=== PATIENT | female | born 1950 | race Caucasian/White ===

== ENCOUNTER → 2016-08-27 | Outpatient (CLI) | payer OTHER ==
--- NOTE | 2016-08-27 15:36 | REP ---
Left tibia-fibula three views : There is no fracture or dislocation. Mineralization and joint spaces are normal. There are no calcifications or foreign bodies. Impression: Negative left tibia-fibula. There is osteoarthritis of the knee. Signed by Pb Long MD 08/27/2016 03:29 P
--- NOTE | 2016-08-27 15:39 | REP ---
Left ankle four views: There is a small calcification adjacent to the superior margin of the talar head on two views, possibly an avulsion. Correlation with clinical point tenderness is recommended. Mineralization and joint spaces are otherwise unremarkable. There is no other evidence of fracture. No dislocation. Impression: Questionable avulsion along the superior margin of the talar head. Correlate with clinical point tenderness. Signed by Pb Long MD 08/27/2016 03:31 P
--- NOTE | 2016-08-27 15:42 | REP ---
Left foot four views: There is a small linear calcification adjacent to the head of the talus superiorly, possibly an avulsion. Correlation with clinical point tenderness is recommended. Mineralization is normal. Joint spaces are otherwise unremarkable. No other fracture or dislocation. Impression: Question avulsion along the superior margin of the head of the talus. Correlate with point tenderness. Signed by Pb Long MD 08/27/2016 03:34 P
== END ==
LOC: M WUC 14:33
PROVIDERS: ATTEND Physician Assistant
DX: M61.472 Other calcification of muscle, left ankle and foot (principal); M17.12 Unilateral primary osteoarthritis, left knee; S80.12XA Contusion of left lower leg, initial encounter; S90.32XA Contusion of left foot, initial encounter; S90.02XA Contusion of left ankle, initial encounter; X58.XXXA Exposure to other specified factors, initial encounter; Y92.89 Other specified places as the place of occurrence of the external cause; Y93.89 Activity, other specified; Y99.8 Other external cause status

== ENCOUNTER → 2019-03-07 | Outpatient (REF) | payer MEDICARE, OTHER | LOC: M LAB REF 16:19 | PROVIDERS: ATTEND Nurse Practitioner Family | DX: J02.9 Acute pharyngitis, unspecified (principal) ==

== ENCOUNTER → 2020-02-15 | Outpatient (CLI) | payer MEDICARE, OTHER ==
[~2020-02-15] MED LIST: ASPI81TA86 PO; EXCETAB22 PO
== END ==
LOC: M LABSMTC 09:53
PROVIDERS: ATTEND Anesthesiology
DX: Z01.812 Encounter for preprocedural laboratory examination (principal); Z20.828 Contact with and (suspected) exposure to other viral communicable diseases
CPT/HCPCS: C9803; U0003

== ENCOUNTER 2020-02-20 10:58 | Day surgery (SDC) | payer MEDICARE, OTHER ==
[~2020-02-20] VITALS: Ht 165.1 cm; Wt 74.4 kg
[~2020-02-20 10:58] MED LIST changes: +NS 1,000 ML IV ONE
[2020-02-20] MEDS ORDERED: propofoL 200 MG/20 ML VIAL As Ordered ONE (11:56)
--- NOTE | 2020-02-20 12:14 | ROOR ---
Patient Name: Paddy Greenfield Procedure Date: 02/20/2020 11:51 AM Date of : 1950 Age: 69 Room: [facility] Gender: Female Note Status: Finalized Procedure: Colonoscopy Indications: Screening for colorectal malignant neoplasm Providers: Segundo Méndez Jr, MD Referring MD: Sophie Nicole NP Requesting Provider: Medicines: Propofol per Anesthesia Complications: No immediate complications. Procedure: Pre-Anesthesia Assessment: - Prior to the procedure, a History and Physical was performed, and patient medications and allergies were reviewed. The patient is competent. The risks and benefits of the procedure and the sedation options and risks were discussed with the patient. All questions were answered and informed consent was obtained. Patient identification and proposed procedure were verified by the physician and the nurse in the pre-procedure area and in the procedure room. Mental Status Examination: alert and oriented. Airway Examination: normal oropharyngeal airway and neck mobility. Respiratory Examination: clear to auscultation. CV Examination: normal. ASA Grade Assessment: II - A patient with mild systemic disease. After reviewing the risks and benefits, the patient was deemed in satisfactory condition to undergo the procedure. The anesthesia plan was to use moderate sedation / analgesia (conscious sedation). Immediately prior to administration of medications, the patient was re-assessed for adequacy to receive sedatives. The heart rate, respiratory rate, oxygen saturations, blood pressure, adequacy of pulmonary ventilation, and response to care were monitored throughout the procedure. The physical status of the patient was re-assessed after the procedure. The Colonoscope was introduced through the anus and advanced to the cecum, identified by appendiceal orifice and ileocecal valve. The colonoscopy was performed without difficulty. The patient tolerated the procedure well. The quality of the bowel preparation was adequate. Findings: The rectum, recto-sigmoid colon, descending colon, transverse colon, ascending colon, cecum, appendiceal orifice and ileocecal valve appeared normal. Multiple small-mouthed diverticula were found in the sigmoid colon. Impression: - The rectum, recto-sigmoid colon, descending colon, transverse colon, ascending colon, cecum, appendiceal orifice and ileocecal valve are normal. - Diverticulosis in the sigmoid colon. - No specimens collected. Recommendation: - Discharge patient to home (ambulatory). - Repeat colonoscopy in 10 years for screening purposes. Segundo Méndez MD Segundo Méndez Jr, MD 02/20/2020 12:14:06 PM Electronically signed by Segundo Méndez Jr, MD Number of Addenda: 0 Note Initiated On: 02/20/2020 11:51 AM Estimated Blood Loss: Estimated blood loss: none.
[2020-02-20 12:29] VITALS: BP 141/74
== END 2020-02-20 12:35 | disposition home or self-care (01) ==
LOC: M OPP 10:58
PROVIDERS: ATTEND Surgery
DX: Z12.11 Encounter for screening for malignant neoplasm of colon (principal); K57.30 Diverticulosis of large intestine without perforation or abscess without bleeding; K21.9 Gastro-esophageal reflux disease without esophagitis; Z79.82 Long term (current) use of aspirin

== ENCOUNTER → 2020-08-19 | Outpatient (CLI) | payer MEDICARE, OTHER ==
[~2020-08-19] MED LIST changes: -NS 1,000 ML IV ONE
--- NOTE | 2020-08-19 14:04 | REP ---
INDICATION: DDD LUMBAR ? HNP STENOSIS. COMPARISON: None. TECHNIQUE: Sagittal T1, T2, STIR, axial T1 and T2 weighted images obtained. FINDINGS: There is owtf-ba-lbzkbkyd multilevel degenerative disc disease with loss of disc height and disc desiccation seen diffusely throughout the lumbar spine. Vertebral heights overall preserved. There is a slight anterolisthesis of L4 over L5. On the sagittal T2 weighted images, no limiting canal stenosis. Conus ends normally at L1 level. On the review of axial images, At L1-2 global disc bulge with mild canal narrowing, moderate left and mild right foraminal narrowing. At L2-3 global disc bulge with mild canal narrowing and mild bilateral foraminal narrowing. At L3-4 global disc bulge with mild canal narrowing and bdwj-vs-oyuhmfnm bilateral foraminal narrowing. At L4-5 broad-based disc bulge and slight listhesis with facet hypertrophic degenerative changes with iiiu-na-mhcvdheo bilateral foraminal narrowing, greater on the left and mild canal stenosis. At L5-S1 global disc bulge with loss of disc height with mild canal narrowing and moderate right and cbcy-ft-gjellutp left foraminal narrowing. IMPRESSION: 1. Cvta-on-xjctdzsy multilevel degenerative disc disease. 2. No limiting canal stenosis. No focal disc herniation. 3. Multilevel degenerative foraminal narrowing, moderate on the left at L1-2, and moderate on the right at L5-S1 levels. 4. Facet arthropathy is notable at the L4-5 level. <Electronically signed by Ag Paul > 08/19/20 [id number]
== END ==
LOC: M RAD 12:42
PROVIDERS: ATTEND Orthopaedic Surgery
DX: M51.36 Other intervertebral disc degeneration, lumbar region (principal)

== ENCOUNTER → 2020-09-22 | Outpatient (CLI) | payer MEDICARE, OTHER ==
--- NOTE | 2020-09-22 11:23 | REP ---
INDICATION: CONTUSION. COMPARISON: None. TECHNIQUE: Four-views FINDINGS: There is asymmetric intra digital joint space narrowing involving all digits. This is moderate. Marginal osteophytosis is seen involving the interphalangeal joint of the 1st digit and the DIP joint of the 2nd digit mostly with more mild marginal osteophytosis seen at all other interphalangeal joints. There is no evidence of periarticular osteopenia. There are no marginal erosions. There is no acute fracture. Moderate to severe degenerative changes are seen involving the wrist particularly the 1st carpometacarpal joint space and the scaphotrapezium interval. IMPRESSION: Chronic changes as described above. <Electronically signed by Jam Oro > 09/22/20 [id number]
== END ==
LOC: M WUC 11:03
PROVIDERS: ATTEND Physician Assistant
DX: S60.221A Contusion of right hand, initial encounter (principal)

== ENCOUNTER → 2021-02-22 | Outpatient (CLI) | payer MEDICARE, OTHER ==
--- NOTE | 2021-02-22 09:50 | REPMRS ---
Patient History The patient states she has not had a clinical breast exam in over a year. Family history of breast cancer at age 58 in mother, breast cancer at age 50 or over in paternal grandmother, unknown cancer at age 56 in father, unknown cancer at age 50 or over in sister, breast cancer at age 50 or over in paternal aunt. Took hormonal contraceptives for 2 years. 14 lb intentional weight loss. Covid vaccines 06/06/20 right arm, 06/27/20 right arm, 01/2021 right arm. Patient states no breast complaints today. Patient has signed MRS History Sheet. Digital Woman Screen Mammo: February 22, 2021 - Exam #: [id number] Bilateral CC and MLO view(s) were taken. Technologist: RT Sarita Prior study comparison: January 27, 2014, bilateral bilat screen digital mammo, performed at [facility] ([facility]). January 25, 2013, bilateral bilat screen digital mammo, performed at [facility] ([facility]). FINDINGS: There are scattered fibroglandular densities. Screening. Digital screening (2D) mammography was performed bilaterally in the CC and MLO projections. Additionally, breast tomosynthesis (3D mammography) was performed bilaterally in the CC and MLO projections. Todays exam was compared to the prior exam/exams. By history, the patient has no complaints of a palpable breast abnormality or other significant breast complaints. The breasts are unchanged in size and shape. There are no nataly-soft tissue densities or spiculated masses. There is no internal architectural distortion. Once again, stable benign appearing calcifications are seen.There are no suspicious nataly-calcific clusters. Skin thickening or nipple retraction is not present. IMPRESSION: BI-RADS Category 2- Benign Findings. There is no evidence of malignant alteration of the breasts. Followup examination recommended in one year. The Volpara volumetric breast density category is B, there are scattered areas of fibroglandular densities. This mammogram was read with the assistance of [employer],an FDA approved computer aided detection system for mammography. The lifetime Tyrer-Cuzick score is 13.6 % Negative x-ray reports should not delay surgical consultation if a dominant or clinically suspicious mass is present. Not all breast cancers can be identified by mammography. Therefore, we recommend that you continue to perform regular breast self-examination and physical examination and then promptly contact your physician of any concerns or changes. Adenosis and dense breasts may obscure an underlying neoplasm. Assessment: BI-RADS/ACR category 2 mammogram. Benign Findings. Recommendation Routine screening mammogram of both breasts in 1 year. Electronically Signed By: Jam Oro DO 02/22/21 0919
--- NOTE | 2021-02-22 10:17 | DEXAMM ---
INDICATION: OSTEOPENIA. COMPARISON: 02/06/2019 as well as other prior exams. TECHNIQUE: Bone density was measured using dual-energy x-ray absorptiometry (DEXA). FINDINGS: AP SPINE L1-L4 BMD 1.285 g/cm2 Young Adult T-Score 0.9 Age Matched Z-Score 2.5. LT FEMUR, TOTAL BMD 0.871 g/cm2 Young Adult T-Score -1.1 Age Matched Z-Score 0.3. LT NECK BMD 0.777 g/cm2 Young Adult T-Score -1.9 Age Matched Z-Score -0.3. RT FEMUR, TOTAL BMD 0.875 g/cm2 Young Adult T-Score -1.1 Age Matched Z-Score 0.3. RT NECK BMD 0.857 g/cm2 Young Adult T-Score -1.3 Age Matched Z-Score 0.3. IMPRESSION: There is normal bone density of the spine. There is low bone density of the left hip. There is low bone density of the right hip. The density of the spine has decreased 1.7% since the initial exam on 12/26/2002. The density of the spine increased 3.5% since most recent exam on 02/06/2019. The density of the left hip has decreased 15.9% since initial exam on 12/26/2002. The density of the left hip has increased 1.9% since most recent exam on 02/06/2019. The density of the right hip has decreased 16.3% since the initial exam on 12/26/2002. The density of the right hip has increased 3.1% since the most recent exam on 02/06/2019. FOLLOW-UP: Recommendation for the next bone density exam: 2 years. <Electronically signed by Pb Flores > 02/22/21 1012
== END ==
LOC: M WHC 08:36
PROVIDERS: ATTEND Nurse Practitioner Adult Health
DX: Z12.31 Encounter for screening mammogram for malignant neoplasm of breast (principal); M81.0 Age-related osteoporosis without current pathological fracture

== ENCOUNTER → 2022-02-10 | Outpatient (REF) | payer MEDICARE, OTHER | LOC: M LAB REF 12:06 | PROVIDERS: ATTEND Nurse Practitioner Adult Health | DX: N39.0 Urinary tract infection, site not specified (principal) ==

== ENCOUNTER → 2022-02-14 | Outpatient (REF) | payer MEDICARE, OTHER ==
[2022-02-14 17:08] LABS: AMYLASE 74 U/L (25-115); LIPASE 247 U/L (73-393)
== END ==
LOC: M LAB REF 15:58
PROVIDERS: ATTEND Nurse Practitioner Adult Health
DX: R13.10 Dysphagia, unspecified (principal)

== ENCOUNTER → 2022-02-25 | Outpatient (CLI) | payer MEDICARE, OTHER ==
[~2022-02-25] MED LIST changes: +E-Z-GAS II EFFERVESCENT PACKET (SODIUM BICARB./CITRIC ACID/SIMETHICONE) As Ordered ONE; +E-Z-HD 98% w/w 340GM SUSP BTL As Ordered ONE; +E-Z-PAQUE 96% w/w SUSP 176GM BTL As Ordered ONE
== END ==
LOC: M RAD 09:17
PROVIDERS: ATTEND Nurse Practitioner Adult Health
DX: Z12.31 Encounter for screening mammogram for malignant neoplasm of breast (principal); K44.9 Diaphragmatic hernia without obstruction or gangrene; K21.9 Gastro-esophageal reflux disease without esophagitis

== ENCOUNTER → 2022-02-25 | Outpatient (CLI) | payer MEDICARE, OTHER ==
[~2022-02-25] MED LIST changes: -E-Z-GAS II EFFERVESCENT PACKET (SODIUM BICARB./CITRIC ACID/SIMETHICONE) As Ordered ONE; -E-Z-HD 98% w/w 340GM SUSP BTL As Ordered ONE; -E-Z-PAQUE 96% w/w SUSP 176GM BTL As Ordered ONE
== END ==
LOC: M WHC 10:53
PROVIDERS: ATTEND Nurse Practitioner Adult Health
DX: Z12.31 Encounter for screening mammogram for malignant neoplasm of breast (principal)

== ENCOUNTER → 2022-05-29 | Outpatient (CLI) | payer MEDICARE, OTHER ==
[~2022-05-29] MED LIST changes: +ASPI81TA26 PO
== END ==
LOC: M LABSMTC 10:53
PROVIDERS: ATTEND Anesthesiology
DX: Z01.818 Encounter for other preprocedural examination (principal)

== ENCOUNTER 2022-06-02 09:26 | Day surgery (SDC) | payer MEDICARE, OTHER ==
[~2022-06-02] VITALS: Ht 162.6 cm; Wt 80.7 kg
[2022-06-02] MEDS ORDERED: LIDOCAINE 2% 100MG/5ML SDV (FOR ANES.) As Ordered ONE (10:27)
[2022-06-02] MEDS ORDERED: propofoL 200 MG/20 ML VIAL As Ordered ONE (10:27)
[2022-06-02 10:55] VITALS: BP 132/61
[2022-06-03] MEDS ORDERED: NS 1,000 ML IV ONE (06:00)
== END 2022-06-02 10:55 | disposition home or self-care (01) ==
LOC: M OPP 09:26
PROVIDERS: ATTEND Surgery
DX: K44.9 Diaphragmatic hernia without obstruction or gangrene (principal); K29.70 Gastritis, unspecified, without bleeding; Z79.1 Long term (current) use of non-steroidal anti-inflammatories (NSAID); Z79.82 Long term (current) use of aspirin

== ENCOUNTER → 2022-08-16 | Outpatient (REF) | payer MEDICARE, OTHER | LOC: M LAB REF 16:09 | PROVIDERS: ATTEND Nurse Practitioner Adult Health | DX: N39.0 Urinary tract infection, site not specified (principal) ==

== ENCOUNTER → 2022-08-31 | Outpatient (CLI) | payer MEDICARE, OTHER | LOC: M WUC 11:41 | PROVIDERS: ATTEND Nurse Practitioner Family | DX: R05.3 Chronic cough (principal); R07.9 Chest pain, unspecified ==

== ENCOUNTER → 2023-02-28 | Outpatient (CLI) | payer MEDICARE, OTHER ==
[~2023-02-28] MED LIST changes: +CIPR250T3 PO; +METR-265 PO; +PROB250C PO; +PROT1TAB2 PO; +SUCR1TA PO
== END ==
LOC: M WHC 08:59
PROVIDERS: ATTEND Nurse Practitioner Adult Health
DX: Z12.31 Encounter for screening mammogram for malignant neoplasm of breast (principal)

== ENCOUNTER → 2023-03-10 | Outpatient (REF) | payer MEDICARE, OTHER | LOC: M LAB REF 17:14 | PROVIDERS: ATTEND Physician Assistant Medical | DX: N39.0 Urinary tract infection, site not specified (principal) ==

== ENCOUNTER → 2023-04-20 | Day surgery (SDC) | payer MEDICARE, OTHER ==
[~2023-04-20] VITALS: Ht 162.6 cm; Wt 77.2 kg
[~2023-04-20] MED LIST changes: +ACET-1349 PO; +ACET650T61 PO; +LIDOCAINE 2% 100MG/5ML SDV (FOR ANES.) As Ordered ONE; +propofoL 200 MG/20 ML VIAL As Ordered ONE
[2023-04-20 11:56] VITALS: BP 158/77; TEMP 97.2; O2SAT 100
== END | disposition home or self-care (01) ==
LOC: M OPP 09:49
PROVIDERS: ATTEND Surgery
DX: K52.9 Noninfective gastroenteritis and colitis, unspecified (principal); K57.30 Diverticulosis of large intestine without perforation or abscess without bleeding; K64.4 Residual hemorrhoidal skin tags; K64.8 Other hemorrhoids; Z79.1 Long term (current) use of non-steroidal anti-inflammatories (NSAID); Z79.82 Long term (current) use of aspirin; Z88.2 Allergy status to sulfonamides

== ENCOUNTER → 2023-07-31 | Outpatient (CLI) | payer MEDICARE, OTHER ==
[~2023-07-31] MED LIST changes: -LIDOCAINE 2% 100MG/5ML SDV (FOR ANES.) As Ordered ONE; -propofoL 200 MG/20 ML VIAL As Ordered ONE
== END ==
LOC: M EKG 11:44
PROVIDERS: ATTEND Nurse Practitioner Adult Health
DX: R00.2 Palpitations (principal)

== ENCOUNTER → 2023-11-20 | Outpatient (REF) | payer MEDICARE, OTHER | LOC: M LAB REF 12:17 | PROVIDERS: ATTEND Nurse Practitioner Adult Health | DX: N39.0 Urinary tract infection, site not specified (principal) ==

== ENCOUNTER → 2023-12-29 | Outpatient (REF) | payer MEDICARE, OTHER | LOC: M LAB REF 12:10 | PROVIDERS: ATTEND Nurse Practitioner Family | DX: N39.0 Urinary tract infection, site not specified (principal) ==

== ENCOUNTER → 2024-01-22 | Outpatient (CLI) | payer MEDICARE, OTHER | LOC: M WHC 13:21 | PROVIDERS: ATTEND Nurse Practitioner Adult Health | DX: N64.4 Mastodynia (principal) | CPT/HCPCS: 77066; G0279 ==

== ENCOUNTER → 2024-05-06 | Outpatient (CLI) | payer MEDICARE, OTHER ==
[2024-05-06 11:34] LABS: PLATELET COUNT, AUTOMATED 337 10^3/uL (150-450)
[2024-05-06 11:50] LABS: INR 1.01; PARTIAL THROMBOPLASTIN TIME 26.6 SECONDS (24.8-34.2); PROTHROMBIN TIME 13.6 SECONDS (12.5-14.5)
== END ==
LOC: M WUC 09:20
PROVIDERS: ATTEND Physician Assistant
DX: Z01.818 Encounter for other preprocedural examination (principal); Z79.01 Long term (current) use of anticoagulants

== ENCOUNTER → 2024-05-22 | Outpatient (CLI) | payer MEDICARE, OTHER | LOC: M WUC 09:27 | PROVIDERS: ATTEND Nurse Practitioner Adult Health | DX: J06.9 Acute upper respiratory infection, unspecified (principal) ==

== ENCOUNTER → 2025-01-22 | Outpatient (CLI) | payer MEDICARE, OTHER | LOC: M WHC 12:49 | PROVIDERS: ATTEND Nurse Practitioner Adult Health | DX: Z12.31 Encounter for screening mammogram for malignant neoplasm of breast (principal) ==